=== PATIENT | female | born 1980 | race Caucasian/White ===

== ENCOUNTER 2017-01-23 09:33 | Emergency (ER) | payer MEDICAID ==
[2017-01-23 09:36] VITALS: BMI 26.9
[2017-01-23 09:46] VITALS: RESP 18; TEMP 97.9; O2SAT 99
--- NOTE | 2017-01-23 10:24 | C.PDOC ---
History Of Present Illness <ZulayshanikamichaelCaro - Last Filed: 01/23/17 10:36> <Sofya Mohr - Last Filed: 01/23/17 10:46> 36 year old female presents with complaints of rectal pain which started three days ago on Sunday. Patient states that she had a stomach virus a few days earlier which caused repeated vomiting and diarrhea five days earlier. Patient states that her symptoms eventually resolved on Sunday. On that same date, she began experiencing pain in the rectal area and noticed a hemorrhoid. Patient states that she has had a smaller appearing one in the past which never required intervention. She admits to some straining upon using the bathroom over the past couple of days She admits to minimal bleeding when initially having a bowel movement on Sunday. She states that she has tried to refrain from having bowel movements going ahead because of the pain. (Caro Schaefer) History Per: Patient Onset/Duration Of Symptoms: Days Current Symptoms Are (Timing): Still Present Number Of Bleeding Episodes: Unknown Amount of Blood Loss: Small Severity: Mild Quality Of Discomfort: Dull Modifying Factors: None Additional History Per: Patient <SilvanoCaro - Last Filed: 01/23/17 10:36> <Sofya Mohr - Last Filed: 01/23/17 10:46> Time Seen by Provider: 01/23/17 10:18 Chief Complaint (Nursing): GI Problem Past Medical History - Medical History PMH: No Chronic Diseases Surgical History: No Surg Hx Family History: States: Unknown Family Hx - Social History Hx Alcohol Use: No Hx Substance Use: No - Immunization History Hx Influenza Vaccination: Yes <Caro Schaefer - Last Filed: 01/23/17 10:36> Vital Signs: Last Vital Signs Temp 97.9 F 01/23/17 09:42 Pulse 78 01/23/17 09:42 Resp 18 01/23/17 09:42 BP 124/77 01/23/17 09:42 Pulse Ox 99 01/23/17 10:42 Review Of Systems Gastrointestinal: Positive for: Other (Initial nausea, vomiting and diarrhea symptoms have resolved) Genitourinary: Negative for: Vaginal Discharge, Vaginal Bleeding Musculoskeletal: Negative for: Shoulder Pain, Arm Pain Skin: Negative for: Rash, Lesions <Caro Schaefer - Last Filed: 01/23/17 10:36> Physical Exam - Physical Exam Appears: Non-toxic, No Acute Distress Skin: Normal Color, Warm Head: Atraumatic, Normacephalic Eye(s): bilateral: Normal Inspection Nose: Flaring Neck: Normal ROM Gastrointestinal/Abdominal: Normal Exam, Bowel Sounds, Soft, No Tenderness Rectal: Hemorrhoids Extremity: Normal ROM Neurological/Psych: Oriented x3 <Caro Schaefer - Last Filed: 01/23/17 10:36> ED Course And Treatment O2 Sat by Pulse Oximetry: 99 Progress Note: Patient reassessed. Uro-Jet applied to the affected area. Home management explained to patient. Follow up recomendations mentioned as well if symptoms do not improve. Reevaluation Time: 10:33 Reassessment Condition: Improved <Caro Schaefer - Last Filed: 01/23/17 10:36> Supervising Attending Note <Caro Schaefer - Last Filed: 01/23/17 10:36> - Attestation: I have personally seen and examined this patient.: Yes I have fully participated in the care of the patient.: Yes I have reviewed all pertinent clinical information, including history, physical exam and plan: Yes <Sofya Mohr - Last Filed: 01/23/17 10:46> - Notes: Notes:: CO RECTAL PAIN, HEMORRHOID X 4 DAYS. S/P RECENT A.G.E. HO PRIOR HEMORRHOIDS BUT REQUIRED NO MD EVAL. +STRAINING DURING RECENT DIARRHEA. +BRBPR W BM. PAIN LOCALIZED, WORSE W SITTING. NO MEDS TRIED.EXAM ABOVE. (Sofya Mohr) Medical Decision Making <Caro Schaefer - Last Filed: 01/23/17 10:36> <Sofya Mohr - Last Filed: 01/23/17 10:46> Medical Decision Making: Patient reassessed. Uro-Jet applied to the affected area. Home management explained to patient. Follow up recommendations mentioned as well if symptoms do not improve. (Caro Schaefer) Disposition <Caro Schaefer - Last Filed: 01/23/17 10:36> Counseled Patient/Family Regarding: Studies Performed, Diagnosis, Need For Followup, Rx Given - Disposition Disposition Time: 10:45 <Sofya Mohr - Last Filed: 01/23/17 10:46> - Disposition Referrals: [facility] [Outside] [facility] [Outside] Disposition: HOME/ ROUTINE Condition: IMPROVED Additional Instructions: Patient explained the following management care. Patient should attempt sitz baths at this time. Patient may also apply Anusol cream to the affected area for relief. If symptoms do not resolve, patient will likely benefit from surgical referral. If symptoms return, patient is to go to the Emergency room. Patient expressed understanding. Prescriptions: Docusate Sodium [Colace] 100 mg PO DAILY #14 capsule Hydrocortisone 2.5% (Rectal) [Anusol-HC] 30 applic OR BID #1 tube Instructions: Hemorrhoids (ED) Forms: [facility] (Romansh), Work Excuse - Clinical Impression Clinical Impression: Hemorrhoids
[2017-01-23] MEDS ORDERED: Lidocaine 2% Jelly (Uro-Jet) TOP ONE (10:35)
[2017-01-23] MEDS ORDERED: Lidocaine 4% (Laryng-O-Jet) Kit MM ONE (10:40)
[2017-01-23] MEDS ORDERED: Lidocaine 2% Jelly (Uro-Jet) ONE (10:45)
[2017-01-23 10:52] VITALS: BP 122/68; PULSE 77
== END 2017-01-23 10:52 | disposition home or self-care (01) ==
LOC: C.ER 09:33
DX: K64.9 Unspecified hemorrhoids (principal)